=== PATIENT | female | born 1995 | race Caucasian/White ===

== ENCOUNTER 2024-02-16 14:09 | Observation (INO) ==
--- NOTE | 2024-02-16 14:22 | Emergency Department Note ---
Impression & Plan Accidental overdose ADMIT ED Provider Note HPI: History obtained from patient. The patient is a 28-year-old female who presents the emergency department with a chief complaint of accidental overdose of bupropion today. Patient states she normally takes 450 mg daily but today she accidentally took 900 mg at approximately 1 PM. Patient contacted poison control and was advised to come to the emergency department for admission for observation. Patient is otherwise hemodynamically stable on arrival. ROS: - Per HPI Differential Diagnosis: Accidental overdose, amongst other potential pathologies. *Outpatient medications and allergy history reviewed. PE: General: Alert HEENT: Normocephalic, trachea midline Eyes: Extraocular eye movement is intact, no scleral erythema Pulmonary: Clear to auscultation bilaterally, no wheezing Cardio: Regular rate and rhythm GI: Abdomen is soft to palpation : No suprapubic tenderness MSK: No evidence of trauma or malformation of the extremities, no edema Skin: No evidence of rash Neuro: Alert, no focal deficits Psychiatric: Cooperative INDEPENDENT INTERPRETATIONS: clerk stenographer: (As interpreted by myself): - An order was placed for continuous cardiac monitoring - Patient was noted to be in sinus rhythm with a rate of 80 EKG: (As interpreted by myself): Rate: 83 Rhythm: Normal sinus rhythm Intervals: Within normal limits ST changes: No ST elevation Time: 1447 Interventions provided in ED: -IV fluid bolus Medical Decision Making: IV was established and lab work obtained. Patient was placed on cardiac nurse. Patient overall appears well on arrival. Lab work shows no leukocytosis, hemoglobin is normal, platelet count is normal, CMP does not show any critical findings, salicylate and Tylenol levels are negative. Case was discussed with poison control, recommendation was made for 24-hour observation stating that the threshold for observation for patient who took extended release bupropion would be 600 mg and the patient did consume 900 mg today. I discussed this with the patient and she is in agreement for admission for observation with the main risk being possible seizure. Case was discussed with hospitalist service (Jose Mcguire PA-C) and the patient was placed for admission in stable condition. Consultants/Discussions held with other healthcare providers: -Poison Control Center -Hospitalist, Dr. Barriga Disposition discussion held by myself with: -Patient Diagnosis: 1. Bupropion overdose, acute, accidental Disposition: Admission Esteban Richards DO Emergency Medicine Past Med/Surg History Problem List (Updated 02/16/24 @ 15:54 by Esteban Richards DO) Accidental overdose (Acute) Social History Smoking Status: Never smoker Feels Safe at Home: Yes Allergies Allergies Allergy/AdvReac Type Severity Reaction Status Date / Time Penicillins Allergy Unknown HAPPENED Verified 02/16/24 15:19 AN INFANT SEVERAL FOODS Allergy Intermediate BAD RASH Uncoded 02/16/24 15:19 LIKE ACNE Home Meds Home Medications Medication Instructions Recorded Confirmed bupropion HCl 150 mg 24 hr tablet, 150 mg PO QAM 02/16/24 02/16/24 extended release bupropion HCl 300 mg 24 hr tablet, 300 mg PO QAM 02/16/24 02/16/24 extended release dextroamphetamine-amphetamine 10 10 mg PO QPM 02/16/24 02/16/24 mg tablet dextroamphetamine-amphetamine ER 20 mg PO QAM 02/16/24 02/16/24 20 mg 24hr capsule,extend release Results & Data (ED) Vital Signs Vital Signs - 24 hr 02/16/24 14:13 02/16/24 14:53 02/16/24 15:08 Temperature 36.2 C L Temperature Source Temporal Artery Scan Pulse Rate 91 H 79 Pulse Rate [Apical] 61 Respiratory Rate 20 16 Respiratory Effort / Characteristics Non-Labored Spontaneous Respiratory Depth Normal Blood Pressure 123/84 Blood Pressure [Right Arm] 120/91 Blood Pressure Mean 97 Blood Pressure Mean [Right Arm] 100 Blood Pressure Position Sitting Pulse Oximetry 96 98 Oxygen Delivery Method Room Air Room Air Sepsis Recent Fever Within 48 Hours No Sepsis New/Unexplained Change in Mental Status N/A Sepsis Action Taken by Nursing No Action Required Laboratory Data 02/16/24 14:56 02/16/24 14:56 Lab Results 02/16/24 Range/Units 14:56 WBC 6.13 (4.8-10.8) K/ul RBC 4.36 (4.20-5.40) M/uL Hgb 13.6 (12.0-16.0) g/dl Hct 39.2 (37.0-47.0) % MCV 89.9 (80.0-100.0) fL MCH 31.2 (25.0-34.0) pg MCHC 34.7 (32.0-36.0) g/dL RDW Std Deviation 39.8 (36.4-46.3) fL RDW Coeff of Eliza 12.1 (11.5-14.5) % Plt Count 262 (130-400) K/uL MPV 9.5 (9.4-12.4) fL Immature Gran % (Auto) 0.2 % Neut % (Auto) 58.7 % Lymph % (Auto) 29.2 % Collier % (Auto) 9.5 % Eos % (Auto) 2.1 % Baso % (Auto) 0.3 % Neut # (Auto) 3.60 (1.40-6.50) K/uL Lymph # (Auto) 1.79 (1.20-3.40) K/uL Collier # (Auto) 0.58 (0.11-0.59) K/uL Eos # (Auto) 0.13 (0.00-0.50) K/uL Baso # (Auto) 0.02 (0.00-0.20) K/uL Immature Gran # (Auto) 0.01 (0.01-0.20) K/uL Sodium 139 (136-145) mmol/L Potassium 3.9 (3.5-5.1) mmol/L Chloride 107 (98-107) mmol/L Carbon Dioxide 25 (21-32) mmol/L Anion Gap 7 (3-11) BUN 13 (6-23) mg/dl Creatinine 0.91 (0.6-1.2) mg/dl Est Cr Clr Drug Dosing 87.9 ml/min Est GFR ( Amer) 98.1 ml/min Est GFR (Non-Af Amer) 84.7 ml/min BUN/Creatinine Ratio 14.3 (10-20) Glucose 83 (70-99(Fasting)) mg/dl Calcium 9.5 (8.6-10.3) mg/dl Total Bilirubin 0.5 (0.2-1.0) mg/dl AST 21 (13-39) U/L ALT 25 (7-52) U/L Alkaline Phosphatase 59 (34-104) U/L Total Protein 7.4 (6.0-8.3) gm/dl Albumin 4.4 (3.4-5.0) gm/dl Globulin 3.0 (2.5-4.0) gm/dl Albumin/Globulin Ratio 1.5 (0.9-2) TSH 2.248 (0.300-4.500) uIu/ml Salicylates < 3.0 L (3.0-30) mg/dl Acetaminophen < 3 L (10-30) ug/ml Administered Medications Discontinued Medications Sodium Chloride (Nss) 1,000 mls @ 999 mls/hr IV .Q1H1M LANG Stop: 02/16/24 15:30 Last Admin: 02/16/24 14:56 Dose: 999 mls/hr Documented By: TAM Discharge Plan Visit Data Chief Complaint: Overdose (Accidental) Stated Complaint: TOOK DOUBLE DOSE OF MEDS BY ACCIDENT ED Provider: Esteban Richards Discharge Problem: Accidental overdose Forms Stand Alone Forms: [facility] [email or web address] [email or web address] Prescriptions Prescriptions: No Action dextroamphetamine-amphetamine 10 mg tablet 10 mg PO QPM Rx Instructions: TAKES AFTER LUNCH dextroamphetamine-amphetamine 20 mg capsule,extended release 24hr 20 mg PO QAM bupropion HCl 300 mg tablet extended release 24 hr 300 mg PO QAM Rx Instructions: TOTAL DOSE 450 MG--TAKES WITH 150 MG TAB. bupropion HCl 150 mg tablet extended release 24 hr 150 mg PO QAM Rx Instructions: TOTAL DOSE 450 MG--TAKES WITH 300 MG TAB. Referrals Referrals: PCP,NO [Primary Care Provider] - Discharge Problem: Accidental overdose Qualifiers: Encounter type: initial encounter Qualified Code(s): T50.901A - Poisoning by unspecified drugs, medicaments and biological substances, accidental (unintentional), initial encounter
[2024-02-16] MEDS: SODIUM CHLORIDE 0.9% 1,000 ML IV SCH (14:56)
--- NOTE | 2024-02-16 15:09 | History & Physical Report ---
Date of Service February 16, 2024 Assessment & Plan (1) Accidental overdose: Plan: Admit to med telemetry Currently stable and nontoxic-appearing Presented to the ED this afternoon at the recommendation of Poison Control Center after she accidentally took a second dose for extended release Wellbutrin Patient normally takes 1 tab of 450 mg extended release Wellbutrin daily, took a total of 900 mg today Patient denies suicidal or homicidal ideations, confirmed that this was an accident Poison control recommends monitoring on telemetry for 24 hours, patient should be medically cleared at 1300 on 02/17/2024 Will follow-up on initial labs ordered by the ED including CBC, CMP, acetaminophen/medical alcohol/salicylate levels, TSH with reflex free T4, UA with culture if indicated, and urine drug panel Out of bed for DVT prophylaxis Regular diet AM CBC, CMP, mag, repeat EKG Plan The patient was discussed Dr. Barriga at the time of admission History of Present Illness Chief Complaint: Accidental Overdose Primary Care Provider: NO PCP Tess is a 28-year-old female with a past medical history significant for ADHD and depression who presented to the [facility] ED on 02/16/2024 at the recommendation of Poison Control Center after she accidentally took a second dose of her prescribed Wellbutrin. The patient explains that she had otherwise been in her normal state of health when she took a dose of her Wellbutrin around 1 PM. Shortly after she realized that she had already taken her dose for the day earlier. Because of this she called poison control who recommended she come to the ED for further workup and observation. This is her 450 mg of extended release Wellbutrin, she is on Adderall. She explains that she did not take her dose of Adderall today after she realized she took a second dose of Wellbutrin as she was concerned of the side effects. She confirms that she is without suicidal or homicidal ideations. She has been feeling well and is just frustrated with herself that she accidentally took a second dose. Denies recent fever, chills, chest pain, palpitations, shortness of breath, abdominal pain, nausea/vomiting, urinary symptoms, diarrhea, lower extremity swelling, and recent trauma. Please refer to Dr. Barriga's attestation for any changes to the treatment plan Allergies Allergy/AdvReac Type Severity Reaction Status Date / Time Penicillins Allergy Unknown HAPPENED Verified 02/16/24 15:19 AN SEVERAL FOODS Allergy Intermediate BAD RASH Uncoded 02/16/24 15:19 LIKE ACNE Home Medications Medication Instructions Recorded Confirmed Type bupropion HCl 150 mg 24 hr tablet, 150 mg PO QAM 02/16/24 02/16/24 History extended release bupropion HCl 300 mg 24 hr tablet, 300 mg PO QAM 02/16/24 02/16/24 History extended release dextroamphetamine-amphetamine 10 10 mg PO QPM 02/16/24 02/16/24 History mg tablet dextroamphetamine-amphetamine ER 20 mg PO QAM 02/16/24 02/16/24 History 20 mg 24hr capsule,extend release Past Med/Surg History Problem List (Updated 02/16/24 @ 15:54 by Esteban Richards DO) Accidental overdose (Acute) Social History Smoking Status: Never smoker Hx Alcohol Use: Yes Alcohol type: beer, wine and hard liquor Hx Substance Use: No Preferred Language: Urdu Communication Ability: Effective Scout Leaser Required: No Beliefs That Will Affect Care: None Current Living Situation: Alone Other Information That Helps Us Care for You: No Feels Safe at Home: Yes Safety Concerns: Feels Safe At This Time Physical Exam Physical Exam: Physical Exam: General: In no acute distress, stated age, well-nourished, good hygiene HEENT: Normocephalic, atraumatic, no scleral icterus, pupils around round, symmetrical, and reactive to light, moist mucus membranes, trachea midline, no thyromegaly Chest/Pulm: No respiratory distress, symmetrical chest expansion, clear breath sounds throughout Cardiac: RRR, no murmurs noted Abdomen: Negative for ascites and bruising, normoactive bowel sounds, soft, non-tender to palpation throughout Musculoskeletal: Symmetrical and without signs of acute trauma, upper and lower extremities with full ROM, no atrophy, spasticity, or flaccidity Extremities: Radial, dorsalis pedis, and posterior tibial pulses are intact and symmetrical, no edema noted in the BL LE's Skin: Warm, dry, no rashes , lesions, or scars noted Neuro: Alert and oriented to person, place, month, year, and president, no focal defects,no tremors noted Psych: No acute distress, calm and cooperative during the exam Results & Data Results & Data Vital Signs (Past 12 Hours) Vital Signs Temp Pulse Resp BP Pulse Ox O2 Del Method 02/16/24 14:53 79 02/16/24 14:13 36.2 C L 91 H 20 123/84 96 Room Air ECG Additional Comments: Normal sinus rhythm Low voltage QRS Borderline ECG No previous ECGs available Code Status & VTE Plan Code Status full code VTE Prophylaxis Plan VTE Prophylaxis will be ordered: Yes Supervising Physician Co-Signing Physician Notes I personally saw and examined the patient. I verified all drake points and agree with Jose Mcguire PA-C with the following exceptions and/or additions: 28 year old female presents to the ER after taking double her dose of Wellbutrin and poison control recommending observation overnight. Patient no having symptoms. Overdose was accidental. O/E A&Ox3, HS RRR, no murmurs, Chest CTAB, Abdo SNT A/P Accidental overdose - observation for 24 hours on telemetry, likely discharge home tomorrow. PG Care Time/CCT Total # of Minutes Spent Total Time Spent with Patient: Total time spent is greater than 50% in coordination of care (as documented) at patient's floor/unit and/or counseling patient: [place] [address] INT INP/OBS CARE 2/55MIN Patient Type New Medical Decision Making Moderate Complexity Diagnoses Accidental overdose T50.901A
[2024-02-16 15:23] LABS: Basophils # (auto) 0.02 K/uL (0.00-0.20); Basophils % (auto) 0.3 %; Eosinophils # (auto) 0.13 K/uL (0.00-0.50); Eosinophils % (auto) 2.1 %; Hematocrit (blood only) 39.2 % (37.0-47.0); Hemoglobin 13.6 g/dl (12.0-16.0); Immature Granulocytes # (auto) 0.01 K/uL (0.01-0.20); Immature Granulocytes % (auto) 0.2 %; Lymphocytes # (auto) 1.79 K/uL (1.20-3.40); Lymphocytes % (auto) 29.2 %; Mean Corpuscular Hemoglobin 31.2 pg (25.0-34.0); Mean Corpuscular Hgb Conc 34.7 g/dL (32.0-36.0); Mean Corpuscular Volume 89.9 fL (80.0-100.0); Mean Platelet Volume 9.5 fL (9.4-12.4); Monocytes # (auto) 0.58 K/uL (0.11-0.59); Monocytes % (auto) 9.5 %; Neutrophils % (auto) 58.7 %; Platelet Count 262 K/uL (130-400); RDW Coefficient of Variation 12.1 % (11.5-14.5); RDW Standard Deviation 39.8 fL (36.4-46.3); Red Blood Count 4.36 M/uL (4.20-5.40); White Blood Count 6.13 K/ul (4.8-10.8)
[2024-02-16 15:35] LABS: Albumin Globulin Ratio 1.5 (0.9-2); Albumin Level 4.4 gm/dl (3.4-5.0); BUN Creatinine Ratio 14.3 (10-20); Bilirubin,Total 0.5 mg/dl (0.2-1.0); Calcium 9.5 mg/dl (8.6-10.3); Creatinine Clr Calc Pharmacy 87.9 ml/min; Est GFR (African American) 98.1 ml/min; Est GFR (Non-African American) 84.7 ml/min; Potassium 3.9 mmol/L (3.5-5.1); Total Protein 7.4 gm/dl (6.0-8.3)
[2024-02-16 15:49] LABS: Thyroid Stimulating Hormone 2.248 uIu/ml (0.300-4.500)
[2024-02-16 15:51] LABS: Acetaminophen < 3 ug/ml (10-30); Salicylate < 3.0 mg/dl (3.0-30)
[2024-02-16 17:55] LABS: Appearance Urine Clear (Clear); Bilirubin Urine Negative (Negative); Blood Urine Negative (Negative); Color Urine Yellow; Glucose Urine UA Negative (Negative); Ketones Urine Negative (Negative); Leukocyte Esterase Urine Negative (Negative); Nitrite Urine Negative (Negative); Protein Urine Negative (Negative); Specific Gravity Urine 1.006 (1.000-1.030); Urobilinogen Urine Negative (Negative)
[2024-02-16 18:48] LABS: Amphetamines+Metham, Urine Pos (Neg); Barbiturates, Urine Neg (Neg); Benzodiazepine, Urine Neg (Neg); Cocaine, Urine Neg (Neg); Fentanyl, Urine Neg (Neg); MDMA (Ecstacy), Urine Pos (Neg); Marijuana, Urine Neg (Neg); Methadone, Urine Neg (Neg); Opiate, Urine Neg (Neg); Phencyclidine, Urine Neg (Neg)
--- NOTE | 2024-02-16 20:22 | Electrocardiogram Report ---
Test Reason : Blood Pressure : / mmHG Vent. Rate : 083 BPM Atrial Rate : 083 BPM P-R Int : 128 ms QRS Dur : 090 ms QT Int : 360 ms P-R-T Axes : 040 024 044 degrees QTc Int : 423 ms Normal sinus rhythm Low voltage QRS Borderline ECG No previous ECGs available Confirmed by Stephen Hoyt ([id number]) on 02/16/2024 8:21:56 PM Referred By: Confirmed By:Stephen Hoyt
--- NOTE | 2024-02-17 08:27 | Electrocardiogram Report ---
Test Reason : Blood Pressure : / mmHG Vent. Rate : 068 BPM Atrial Rate : 068 BPM P-R Int : 134 ms QRS Dur : 096 ms QT Int : 388 ms P-R-T Axes : 048 046 055 degrees QTc Int : 412 ms Normal sinus rhythm with sinus arrhythmia Normal ECG When compared with ECG of 16-FEB-2024 14:47, No significant change was found Confirmed by Sumanth Vela ([id number]) on 02/17/2024 8:26:41 AM Referred By: REFERRED SELF Confirmed By:Sumanth Vela
--- NOTE | 2024-02-17 11:50 | Discharge Summary ---
Date of Service February 17, 2024 Admission HPI Per Admitting Provider Tess is a 28-year-old female with a past medical history significant for ADHD and depression who presented to the [facility] ED on 02/16/2024 at the recommendation of Poison Control Center after she accidentally took a second dose of her prescribed Wellbutrin. The patient explains that she had otherwise been in her normal state of health when she took a dose of her Wellbutrin around 1 PM. Shortly after she realized that she had already taken her dose for the day earlier. Because of this she called poison control who recommended she come to the ED for further workup and observation. This is her 450 mg of extended release Wellbutrin, she is on Adderall. She explains that she did not take her dose of Adderall today after she realized she took a second dose of Wellbutrin as she was concerned of the side effects. She confirms that she is without suicidal or homicidal ideations. She has been feeling well and is just frustrated with herself that she accidentally took a second dose. D enies recent fever, chills, chest pain, palpitations, shortness of breath, abdominal pain, nausea/vomiting, urinary symptoms, diarrhea, lower extremity swelling, and recent trauma. Please refer to Dr. Barriga's attestation for any changes to the treatment plan Principal Diagnosis Accidental Wellbutrin overdose Discharge Exam General-alert and oriented x3, no fever, no chills HEENT-head atraumatic and normocephalic, pupils equal and reactive to light, extraocular muscles intact Neck-no lymphadenopathy or thyromegaly, trachea midline Chest-clear to auscultation. No rales, wheezing or rhonchi Cardiac-regular rate and rhythm, normal S1 and S2 Abdomen-normal bowel sounds, no hepatosplenomegaly Extremities-no cyanosis, clubbing, or edema Neuro-cranial nerves II through XII intact, motor and sensory function within normal limits, strength symmetrical, no focal deficits Psych-normal affect, normal mood Discharge Data Allergies Allergy/AdvReac Type Severity Reaction Status Date / Time Penicillins Allergy Unknown HAPPENED Verified 02/16/24 15:19 AN SEVERAL FOODS Allergy Intermediate BAD RASH Uncoded 02/16/24 15:19 LIKE ACNE Consultations 02/16/24 14:41 ED Decision to Admit Stat Hospital Course (1) Accidental overdose: Inadvertent self administration of an extra dose of Wellbutrin yesterday, February 15. She is currently asymptomatic. EKGs are unremarkable. Vital signs are stable. (2) ADHD: Stable. Wellbutrin therapy Plan Home today, February 16 Total Time Total Time Spent Total Time Spent (In Minutes): 45 minutes Discharge Plan Discharge Items Patient Disposition: Home - Self-Care Reason For Visit: ACCIDENTAL OVERDOSE Discharge Diagnosis: Inadvertent Wellbutrin overdose Activity: Resume your previous activity Non-emergency contact: Primary Care Provider Call non-emergency contact if: you have any medication questions Follow-up/Referrals: PCP,NO [Primary Care Provider] - Diet: Regular Addtl Attending Provider Instructions: No medication changes at this time Pending Studies at Discharge: No Stand-Alone Forms: [employer], Smoking Cessation Medications and DC Order Prescriptions: Continued dextroamphetamine-amphetamine 10 mg tablet 10 mg PO QPM Rx Instructions: TAKES AFTER LUNCH dextroamphetamine-amphetamine 20 mg capsule,extended release 24hr 20 mg PO QAM bupropion HCl 300 mg tablet extended release 24 hr 300 mg PO QAM Rx Instructions: TOTAL DOSE 450 MG--TAKES WITH 150 MG TAB. bupropion HCl 150 mg tablet extended release 24 hr 150 mg PO QAM Rx Instructions: TOTAL DOSE 450 MG--TAKES WITH 300 MG TAB. Discharge Orders: Discharge Order (Routine); Ordered 02/17/24 Ordered By: Axel Haq Admission Data Admit Date/Time: 02/16/24 14:46 Attending Provider: Axel Haq Admit Provider: Henry Barriga Primary Care Provider: PCP,NO Other Providers: Henry Barriga Coding Level of Care Code 15548 INP/OBS DISCH >30 MIN Diagnoses Accidental overdose T50.901A Encounter type: initial encounter ADHD F90.9
== END 2024-02-17 12:12 | disposition home or self-care (01) ==
LOC: EDINP 14:09 → ED 14:09 → SUATTDRO 14:46 → 2W 17:48
DX: I49.8 Other specified cardiac arrhythmias; F90.9 Attention-deficit hyperactivity disorder, unspecified type; Z79.899 Other long term (current) drug therapy; T43.291A Poisoning by other antidepressants, accidental (unintentional), initial encounter; Z88.0 Allergy status to penicillin; Z91.018 Allergy to other foods